=== PATIENT | female | born 1965 | race Caucasian/White ===

== ENCOUNTER → 2017-04-14 | Outpatient (CLI) | payer BC, OTHER | LOC: FIMAGING 10:45 | PROVIDERS: ATTEND Obstetrics & Gynecology | DX: Z12.31 Encounter for screening mammogram for malignant neoplasm of breast (principal) | CPT/HCPCS: G0202 ==

== ENCOUNTER → 2017-05-04 | Outpatient (CLI) | payer OTHER | LOC: FIMAGING 10:36 | PROVIDERS: ATTEND Surgery | DX: N60.11 Diffuse cystic mastopathy of right breast (principal) ==

== ENCOUNTER 2018-01-04 21:18 | Observation (INO) | payer OTHER ==
[2018-01-04] MEDS ORDERED: LR 1,000 ML IV ONE (21:41)
--- NOTE | 2018-01-04 21:53 | EDPHY ---
H & P Time Seen by Provider: 01/04/18 21:37 HPI/ROS: HPI Breast reduction surgery with postoperative left breast hematoma. 52-year-old female by private vehicle with her . This patient had breast reduction surgery by plastic surgeon Dr. Erazo earlier today. She has developed an expanding hematoma in her left breast. I received a call from Dr. Erazo. He asked if the patient could be seen in the emergency department quickly, have an IV placed a CBC obtained and given a L of LR. He does not want antibiotics given. Planned OR time is 10:30 p.m.. The patient complains of some discomfort and pressure in her left breast. It currently has a pressure type dressing over her breast that her supported by a broad top. It has bled through this partially. ROS: Constitutional: No fever, no chills. No weakness. Musculoskeletal: As above. Skin: As above. Neurological: No focal weakness or altered sensation. Past medical history: She denies any other significant past medical history other than noted above. Social history: Here with her . Nonsmoker. Physical Exam: General Appearance: Alert, no distress. This patient is responding to questions appropriately and in full sentences. This patient appears well- hydrated and well-nourished. Eyes: Pupils equal and round no pallor or injection. No lid edema, erythema or injection. Chest: Postoperative dressing with support bra over it. Left breast firm on palpation. She has bled partially through her dressing and brought. Lungs are clear on auscultation bilaterally anteriorly. Heart: Regular rate and rhythm. Borderline tachycardia. Neurological: Motor sensory function is grossly intact. Cranial nerves are normal. Gait is normal. Skin: Warm and dry, no rashes. Extremities are symmetrical. All joints range without pain or impingement. Psychiatric: No agitation. No depression. Database: EKG: Imaging: Procedures: Emergency department course: Vital signs reviewed. An IV was placed as requested. She was started on lactated Ringer's with 1 L to be given over the next hour. She is scheduled to go to the operating room at 10:30 p.m.. 10:20 p.m., patient transferred to the operating room in stable condition. Results of CBC reviewed. Her remaining emergency department course under my care has been uneventful. Differential Diagnosis: The differential diagnosis on this patient includes but is not limited to breast reduction surgery with postoperative left breast hematoma. This represents a partial list of diagnoses considered. These considerations are based on history, physical exam, past history, reassessment and diagnostic testing. Smoking Status: Never smoked Constitutional: Initial Vital Signs Temperature (C) 37.3 C 01/04/18 21:30 Heart Rate 125 H 01/04/18 21:30 Respiratory Rate 20 01/04/18 21:30 Blood Pressure 103/74 01/04/18 21:30 O2 Sat (%) 93 01/04/18 21:30 O2 Delivery Mode Room Air Allergies/Adverse Reactions: Penicillins Allergy (Verified 01/04/18 21:30) Medical Decision Making - Data Points Laboratory Results: Laboratory Results 01/04/18 21:45 01/04/18 21:45 WBC 11.22 10^3/uL H 10^3/uL (3.80-9.50) RBC 4.03 10^6/uL L 10^6/uL (4.18-5.33) Hgb 11.8 g/dL L g/dL (12.6-16.3) Hct 34.9 % L % (38.0-47.0) MCV 86.6 fL fL (81.5-99.8) MCH 29.3 pg pg (27.9-34.1) MCHC 33.8 g/dL g/dL (32.4-36.7) RDW 14.0 % % (11.5-15.2) Plt Count 236 10^3/uL 10^3/uL (150-400) MPV 10.3 fL fL (8.7-11.7) Neut % (Auto) 89.3 % H % (39.3-74.2) Lymph % (Auto) 6.3 % L % (15.0-45.0) Shannon % (Auto) 3.9 % L % (4.5-13.0) Eos % (Auto) 0.0 % L % (0.6-7.6) Baso % (Auto) 0.1 % L % (0.3-1.7) Nucleat RBC Rel Count 0.0 % % (0.0-0.2) Absolute Neuts (auto) 10.02 10^3/uL H 10^3/uL (1.70-6.50) Absolute Lymphs (auto) 0.71 10^3/uL L 10^3/uL (1.00-3.00) Absolute Monos (auto) 0.44 10^3/uL 10^3/uL (0.30-0.80) Absolute Eos (auto) 0.00 10^3/uL L 10^3/uL (0.03-0.40) Absolute Basos (auto) 0.01 10^3/uL L 10^3/uL (0.02-0.10) Absolute Nucleated RBC 0.00 10^3/uL 10^3/uL (0-0.01) Immature Gran % 0.4 % % (0.0-1.1) Immature Gran # 0.04 10^3/uL 10^3/uL (0.00-0.10) Medications Given: Lactated Ringer's (Lr) 1,000 mls @ 500 mls/hr IV EDNOW ONE Stop: 01/04/18 23:40 Last Admin: 01/04/18 21:51 Dose: 1,000 mls Discontinued Medications Morphine Sulfate (Morphine) 5 mg IV ONCE ONE Stop: 01/04/18 22:32 Last Admin: 01/04/18 22:30 Dose: 5 mg Departure - Departure Disposition: To OP Cath/Surgery Clinical Impression: Postoperative hematoma left breast, Postoperative bleeding
[2018-01-04 21:54] LABS: PLATELET COUNT 236 10^3/uL (150-400)
[2018-01-04] MEDS ORDERED: BUPIVACAINE 0.25% 30 ML SDV ONE (22:20)
[2018-01-04] MEDS ORDERED: AVITENE POWDER 1 GM JAR TP ONE (22:20)
[2018-01-04] MEDS ORDERED: GENTAMICIN SULFATE 80 MG/2 ML VIAL ONE (22:20)
[2018-01-04] MEDS ORDERED: BACITRACIN ZINC 14.2 GM OINTTUBE TP ONE (22:20)
--- NOTE | 2018-01-04 22:20 | PDGENHP ---
History & Physical Chief Complaint: Hematoma Left breast History of Present Illness: Hematoma Left breast after breast reduction today 01/04/18 Pertinent Past, Social, Family History: None. allergy Penicillin and cephalosporins. surgery-endometrial ablation Relevant Physical Exam: heent-clear. Chest-clear. Neck-supple. Card-RSR No M. Left breast hematoma, Right breast normal post op swelling. Plan: I and D hematoma in the OR Cardiorespiratory Assessment: RSR no M
[2018-01-04] MEDS ORDERED: ceFAZolin 1 GM/5 ML SYR ONE (22:21)
[2018-01-04] MEDS ORDERED: BACITRACIN 50,000 UNITS/10 ML SYR IRR ONE (22:21)
[2018-01-04] MEDS ORDERED: HYDROCODONE/APAP 5/325 TAB PO PRN (23:15)
[2018-01-04] MEDS ORDERED: ONDANSETRON DISINTEGRATING 4 MG TAB PO PRN (23:15)
[2018-01-04] MEDS ORDERED: HYDROmorphONE/DILAUDID 2 MG TAB PO PRN (23:15)
[2018-01-04] MEDS ORDERED: PROMETHAZINE HCL 25 MG/ML INJ IVP PRN (23:15)
[2018-01-04] MEDS ORDERED: LR 1,000 ML IV SCH (23:30)
[2018-01-04] MEDS ORDERED: SCOPOLAMINE HYDROBROMIDE 1 MG/3 DAYS PATCH TD SCH (23:45)
[2018-01-04] MEDS ORDERED: MIDAZOLAM 2 MG/2 ML VIAL IVP ONE (23:48)
--- NOTE | 2018-01-04 23:52 | PDANEPAE ---
ANE History of Present Illness 52 year old female with breast reduction earlier today now presents with breast hematoma. ANE Past Medical History - Cardiovascular History Hx Hypertension: No Hx Arrhythmias: No Hx Chest Pain: No Hx CHF / Valvular Disease: No Hx Palpitations: No - Pulmonary History Hx COPD: No Hx Asthma/Reactive Airway Disease: No Hx Recent Upper Respiratory Infection: No Hx Oxygen in Use at Home: No Hx Sleep Apnea: No - Endocrine History Hx Diabetes: No Hypothyroid: No Hyperthyroid: No Obesity: no - Renal History Hx Renal Disorders: No - Liver History Hx Hepatic Disorders: No - Neurological & Psychiatric Hx Hx Neurological and Psychiatric Disorders: No - Cancer History Hx Cancer: No - Congenital Disorder History Hx Congenital Disorders: No - GI History GERD: no Hx Gastrointestinal Disorders: No - Chronic Pain History Chronic Pain: No ANE Review of Systems Review of systems is: negative Review of Systems: - Exercise capacity Exercise capacity: >=4 METS ANE Patient History - Allergies Allergies/Adverse Reactions: cephalexin [From Keflex] Allergy (Verified 01/04/18 23:06) "felt like my throat and chest were closing up" Penicillins Allergy (Verified 01/04/18 21:30) - Home Medications Home medications: home medication list seen and reviewed - NPO status NPO Status: no food or drink >8 hours NPO Since - Liquids (Date): 01/04/18 NPO Since - Liquids (Time): 20:00 NPO Since - Solids (Date): 01/04/18 NPO Since - Solids (Time): 18:00 - Anes Hx Anes Hx: no prior problems - Smoking Hx Smoking Status: Never smoked Marijuana use: No - Alcohol Use Alcohol Use: Rarely - Family Anes Hx Family Anes Hx: neg - N/A ANE Labs/Vital Signs - Labs Result Diagrams: 01/04/18 21:45 - Vital Signs Vital Signs: reviewed preoperatively; see RN documention for details Blood Pressure: 126/83 Heart Rate: 100 Respiratory Rate: 20 O2 Sat (%): 93 Height: 167.64 cm Weight: 81.647 kg ANE Physical Exam - Airway Neck exam: FROM Mallampati Score: Class 2 Mouth exam: normal dental/mouth exam - Pulmonary Pulmonary: no respiratory distress - Cardiovascular Cardiovascular: regular rate and rhythym - ASA Status ASA Status: I ANE Anesthesia Plan Anesthesia Plan: general endotracheal anesthesia Total IV Anesthesia: No
[2018-01-04] MEDS ORDERED: MIDAZOLAM 2 MG/2 ML VIAL ONE (23:55)
[2018-01-04] MEDS ORDERED: SCOPOLAMINE HYDROBROMIDE 1 MG/3 DAYS PATCH TD ONE (23:55)
[2018-01-04] MEDS ORDERED: fentaNYL 100 MCG/2 ML INJ ONE (23:58)
[2018-01-04] MEDS ORDERED: ROCURONIUM 50 MG/5 ML VIAL ONE (23:58)
[2018-01-04] MEDS ORDERED: PROPOFOL 200 MG/20 ML VIAL ONE (23:58)
[2018-01-05] MEDS ORDERED: BUPIVACAINE 0.5% 30 ML SDV ONE (00:20)
[2018-01-05] MEDS ORDERED: ONDANSETRON 4 MG/2 ML VIAL ONE (00:26)
[2018-01-05] MEDS ORDERED: DEXAMETHASONE 4 MG/ML VIAL ONE (00:27)
[2018-01-05] MEDS ORDERED: CLINDAMYCIN 600 MG/DEXTROSE 50 ML IV ONE (00:30)
--- NOTE | 2018-01-05 01:39 | POSTANESTH ---
Post Anesthetic Evaluation Cardiovascular Status: Normal, Stable, Similar to Pre-Op Cond Respiratory Status: Normal, Stable, Similar to Pre-op Cond. Level of Consciousness/Mental Status: Can Participate in Eval, Alert and Oriented Pain Control: Adequate, Prn Tx Ordered Nausea/Vomiting Control: Adequate, Prn Tx Ordered Complications Possibly Related to Anesthesia: None Noted
--- NOTE | 2018-01-05 07:35 | SOAPPROG ---
SOAP Progress Note Assessment/Plan: Assessment: sat PO, no evidence of further bleeding 01/05/18 07:34 Home with instructions to call if any further bleeding or concerns Subjective: feel well. no nausea. amb and voiding Objective: Vital Signs Temp Pulse Resp BP Pulse Ox 37.1 C 93 18 108/66 97 01/05/18 05:09 01/05/18 05:09 01/05/18 05:09 01/05/18 05:09 01/05/18 05:09 01/04/18 01/05/18 01/06/18 05:59 05:59 05:59 Intake Total 1010 Output Total 80 Balance 930 VSS, I&O appropriate,dressings dry. no evidence of further bleeding - Time Spent With Patient Time Spent With Patient: 10" - Pending Discharge Pending Discharge Within 24 Hours: Yes Pending Discharge Date: 01/06/18 Pending Discharge Time: 11:00 ICD10 Worksheet Patient Problems: Problems Problem Status Onset Hematoma of breast Acute - ICD10 Problem Qualifiers (1) Hematoma of breast
[2018-01-05 08:59] VITALS: BP 115/69
--- NOTE | 2018-01-05 09:30 | GOP ---
[f rep st] OPERATIVE REPORT DATE OF OPERATION: 01/05/2018 SURGEON: Frankie Erazo MD ANESTHESIA: General. ANESTHESIOLOGIST: James. PREOPERATIVE DIAGNOSIS: Postoperative hematoma, left breast. POSTOPERATIVE DIAGNOSIS: Postoperative hematoma, left breast. PROCEDURE PERFORMED: Incision and drainage, hematoma, left breast. FINDINGS: INDICATIONS: CLINICAL SUMMARY: Patient is a 52-year-old female, who underwent bilateral breast redu ction on 01/04. She developed postoperative hematoma on the left side, and was taken to the operatin g room for incision, drainage, and control of bleeding. DESCRIPTION OF PROCEDURE: Patient was satisfactorily anesthetized under general anesthesia in the bedoya pine position. The left chest was prepped and draped in usual sterile fashion. Inferior incision wa s reopened and drain removed. Approximately 400 cc of clotted blood was removed from the postoperati ve pocket. Multiple bleeding sites were cauterized after multiple irrigations with normal saline truong ution. No definitive major bleeding site was noted. Avitene was placed into the pocket followed by placement of a new 15-[place] drain. The inframammary incision was then closed with interrupted layer ed suture and skin yves. No bleeding was noted from the drain after 10 minutes of observation. A light compressive dressing was applied. The patient tolerated the procedure well, and was awakened in the operating room, taken to the recovery room in apparent satisfactory condition. /[id number]/MODL
[2018-01-07] MEDS ORDERED: PATCH REMOVAL 1 EA PATCH TD SCH (23:48)
== END 2018-01-05 10:20 | disposition home or self-care (01) ==
LOC: FSGY 22:13 → FOB 01-05 02:05
PROVIDERS: ADMIT Specialist; ATTEND Specialist
PROC: 0H9U00Z Drainage of Left Breast with Drainage Device, Open Approach (ICD-10-PCS; principal; 2018-01-04)
DX: L76.31 Postprocedural hematoma of skin and subcutaneous tissue following a dermatologic procedure (principal); Z88.0 Allergy status to penicillin
CPT/HCPCS: 10140; G0378; J1100; J1580; J2250; J2270; J2405; J2704; J3010